=== PATIENT | male | born 1960 | race Caucasian/White ===

== ENCOUNTER → 2018-11-16 | Outpatient (CLI) | payer BC ==
[~2018-11-16] MED LIST: CIPROFLOXACIN500 M3 OR; FLAGYL500 MG PO; LORTAB 5 MG/5001 TAB PO; NOHOMEMEDICATIONS; PENTASA 250 MG250 MG PO; PREDNISONE 10 M10 M1 PO
== END ==
LOC: RAD 09:08
DX: R05 Cough (principal); Z87.01 Personal history of pneumonia (recurrent)

== ENCOUNTER → 2018-11-30 | Outpatient (CLI) | payer BC | LOC: CAT 09:24 | DX: J98.4 Other disorders of lung (principal); J18.1 Lobar pneumonia, unspecified organism ==

== ENCOUNTER → 2020-05-03 | Outpatient (CLI) | payer BC | LOC: LAB 08:40 | PROVIDERS: ATTEND Family Medicine | DX: R05 Cough (principal); R50.9 Fever, unspecified; R53.83 Other fatigue; R07.89 Other chest pain; M79.10 Myalgia, unspecified site; Z20.828 Contact with and (suspected) exposure to other viral communicable diseases ==

== ENCOUNTER → 2020-07-24 | Outpatient (CLI) | payer BC | LOC: LAB 12:36 | PROVIDERS: ATTEND Nurse Practitioner | DX: U07.1 COVID-19 (principal) ==

== ENCOUNTER 2020-08-07 10:10 | Emergency (ER) | payer BC ==
[~2020-08-07] VITALS: Ht 180.3 cm; Wt 117.5 kg
[2020-08-07 11:14] LABS: HEMATOCRIT 38.6 % (42.0-52.0); HEMOGLOBIN 12.8 gm/dL (14.0-18.0); MCH 28.3 pg (26.0-34.0); MCHC 33.2 g/dL (28.0-37.0); MCV 85.4 fL (80.0-100.0); RBC 4.52 mil/uL (4.50-6.00); RDW 13.7 % (10.5-14.5)
[2020-08-07 11:26] LABS: ANION GAP 6 mmol/L (7-16); BUN 9 mg/dL (7-18); CALCIUM 8.8 mg/dL (8.5-10.1); CHLORIDE 100 mmol/L (98-107); CO2 29 mmol/L (21-32); CREATININE 1.2 mg/dL (0.7-1.3); GLUCOSE 147 mg/dL (74-106); POTASSIUM 3.5 mmol/L (3.5-5.1); SODIUM 135 mmol/L (136-145)
[2020-08-07 11:30] LABS: TROPONIN-I <0.06 ng/mL (<0.06)
--- NOTE | 2020-08-07 12:25 | EKG ---
[facility] [place] [address] ELECTROCARDIOGRAM REPORT Name: LENABRIL WASHINGTON Room #: [facility].#: [id number] Admission: 08/07/20 Attend Phys: Discharge: Date of : 58 Report #: [id number] THIS REPORT FOR: cc: Hermilo Ugalde MD, Neal A. MD Santiago, Patrick MD [facility] ~ THIS REPORT FOR: //name// [facility] ED Test Date: 2020-08-07 Test Time: 12:02:40 Pat Name: ABRIL HARRINGTON Department: Room: Gender: Inside Technical Sales Representative: : 1960 Requested By: Elijah Price Order Number: [id number] MD: Tom Lyons Measurements Intervals [place] Rate: 76 P: 50 DC: 151 QRS: 21 QRSD: 95 T: 49 QT: 371 QTc: 418 Interpretive Statements Sinus rhythm Baseline wander in lead(s) V1 No previous ECG available for comparison Electronically Signed On 08-07-2020 12:24:54 MANAGER CCU by Tom Lyons [email or web address] <ELECTRONICALLY SIGNED> By: Tom Lyons MD, [facility] 08/07/20 1224 1202 120 Tom Lyons MD, FACC /EPI
[2020-08-07 12:32] LABS: BE(vivo) 3.3 mmol/L (-2 to +3); HCO3 26.9 mmol/L (22.0-26.0); PCO2 37.6 mmHg (35.0-45.0); PO2 72.8 mmHg (80.0-100.0); pH 7.473 (7.360-7.450); sO2 95.6 % (92.0-98.0)
[2020-08-07] MEDS ORDERED: DOXYCYCLINE 10100 MG PO (13:58)
[2020-08-07 14:17] VITALS: BP 129/66
== END 2020-08-07 14:18 | disposition home or self-care (01) ==
LOC: ER 10:10
PROVIDERS: Emergency Medicine
DX: J18.9 Pneumonia, unspecified organism (principal); Z88.1 Allergy status to other antibiotic agents; Z88.5 Allergy status to narcotic agent; Z20.828 Contact with and (suspected) exposure to other viral communicable diseases